=== PATIENT | male | born 1970 | race Hispanic/Latino ===

== ENCOUNTER 2016-05-21 22:17 | Inpatient (IN) | payer OTHER, MEDICARE ==
[2016-05-21 22:25] VITALS: BMI 37.5
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
[2016-05-21 23:03] LABS: URINE BILIRUBIN NEGATIVE (NEGATIVE); URINE BLOOD NEGATIVE (NEGATIVE); URINE GLUCOSE (UA) NEGATIVE (NEGATIVE); URINE KETONE NEGATIVE (NEGATIVE); URINE LEUKOCYTE ESTERASE NEGATIVE Leu/uL (NEGATIVE); URINE PROTEIN NEGATIVE mg/dL (<30 mg/dL); URINE UROBILINOGEN 0.2 E.U./dL (<1 E.U./dL)
[2016-05-21 23:04] LABS: URINE APPEARANCE CLEAR (CLEAR); URINE COLOR YELLOW (YELLOW)
[2016-05-22 00:45] LABS: GFR AFRICAN-AMERICAN > 60
[2016-05-22 00:52] LABS: ADD MANUAL DIFF? NO
[2016-05-22 00:54] LABS: BASO # 0.04 K/mm3 (0.0-2.0); BASO % 0.4 % (0.0-3.0); EOS # 0.2 (0.0-0.7); EOS % 1.8 % (1.5-5.0); GRAN # 6.67 (1.4-6.5); GRAN % 61.2 % (50.0-68.0); HEMATOCRIT 37.9 % (42.0-52.0); LYMPH # 3.2 (1.2-3.4); LYMPH % 29.8 % (22.0-35.0); MEAN CELL VOLUME 89.2 fL (80.0-105.0); MEAN CORPUSCULAR HEMOGLOBIN 30.1 pg (25.0-35.0); MEAN CORPUSCULAR HGB CONC 33.8 g/dl (31.0-37.0); MEAN PLATELET VOLUME 9.2 fl (7.0-11.0); MONO # 0.7 (0.1-0.6); MONO % 6.8 % (1.0-6.0); PLATELET COUNT 298 10^3/uL (120.0-450.0); RED CELL DISTRIBUTION WIDTH 14.7 % (11.5-14.5); WHITE BLOOD COUNT 10.9 10^3/ul (4.5-11.0)
[2016-05-22 01:05] LABS: ALB/GLOB RATIO 1.1 (1.1-1.8); ALKALINE PHOSPHATASE 82 U/L (38-133); ALT/SGPT 56 U/L (7-56); AST/SGOT 58 U/L (15-59); BILIRUBIN,TOTAL 0.5 mg/dL (0.2-1.3); BLOOD UREA NITROGEN 18 mg/dL (7-21); CALCIUM 9.1 mg/dL (8.4-10.5); CARBON DIOXIDE 32 mmol/L (21-33); CHLORIDE 97 mmol/L (95-110); POTASSIUM 4.6 mmol/L (3.6-5.0); SODIUM 137 mmol/L (132-148); TOTAL PROTEIN 7.8 g/dL (5.8-8.3)
[2016-05-22 01:12] LABS: GLUCOSE,RANDOM 140 mg/dL (70-110)
[2016-05-22 06:22] VITALS: O2SAT 98
[2016-05-22] MEDS ORDERED: buPROPion 300 mg/24 Hours XL Tab PO SCH (08:00)
--- NOTE | 2016-05-22 08:31 | RAD ---
HISTORY: medical clearance COMPARISON: 04/29/2012 FINDINGS: LUNGS: No active pulmonary disease. PLEURA: No significant pleural effusion identified, no pneumothorax apparent. CARDIOVASCULAR: Normal. OSSEOUS STRUCTURES: No significant abnormalities. VISUALIZED UPPER ABDOMEN: Normal. OTHER FINDINGS: None. IMPRESSION: No active disease.
[2016-05-22] MEDS: Alum-Mag Hydrox-Simethicone Susp (30 mL) PO PRN (08:38)
[2016-05-22 09:02] LABS: CHOLESTEROL 179 mg/dL (130-200)
--- NOTE | 2016-05-22 13:51 | CARD ---
APPROVED REPORT EKG Measurement Heart [id number] <Conclusion> Sinusl rhythm normal ECG
[2016-05-22] MEDS: Levothyroxine 50 MCG TAB PO SCH (15:13)
--- NOTE | 2016-05-22 16:11 | PCM.PSYCH ---
Initial Psychiatric Evaluation - Initial Psychiatric Evaluation Type of Admission: Voluntary Legal Status: Capacity (patient has capacity to sign consent for treatment) Chief Complaint (in patient's own words): "I had that bloody image, I got scared, I knew I needed to come for help" Patient's Reaction to Hospitalization: patient was admitted to psychiatric inpatient unit for evaluation of worsening psychotic symptoms, paranoid ideations, visual hallucinations, aggressive feelings of hurting his coworkers, but no intent or plan, pt came voluntarily to ED looking for admission. History of Present Illness and Precipitating Events: Shortly, patient is 45 year old male, history of bipolar disorder, denied previous psychiatric admissions, patient came to the emergency room looking for admission for worsening of psychotic symptoms, visual hallucinations , voices, patient's medications were changed recently, patient needs further evaluation and stabilization, medication initiation and titration, and close observation. patient was seen at the treatment team meeting, presented to have fair personal hygiene, good ADLs. Patient reported that he was stable on Risperdal 2013 which was increased to 4mg daily over the years, pt said that "it stopped working" and his outpatient psychiatrist switched it to to Invega 3mg am and 6gm pm. For the past 2 weeks patient was feeling worse, worsening of psychotic symptoms, patient is hearing voices, feeling not safe, yesterday patient had panic attack which led him to have visual hallucinations he had aggressive feelings to hurt his coworkers, patient didn't have any intent or plan to hurt other people or hurt himself, patient brought himself to the hospital looking for admission. Pt was not able to work for the past three weeks because of feeling being monitored by his coworkers. Pt reported to hear female voice telling him to kill himself, at times voice is waking him up at times pt has difficulties to fall asleep because of it. Pt said he was feeling that his coworkers are criticizing him and feeling that "If I would lose a job, that is all, I will end it all", pt said that he was not told that he is losing his job but he was feeling "stressed out", pt said he had thoughts of killing himself for about three days last week, with the idea to overdose on pills, pt said that he did not plan it but it was "popping in my head", pt also had thoughts of jumping in front of the train, last time was three weeks ago "when I was going to work", pt said he does not have any intent and he thinks about his kids and pt contracted for safety. pt reported to feel worrying about his job, kids, relationships and it is affecting his life. Pt also reported to have panic attacks. Pt also reported to feel depressed, irritable, and angry, pt said his mind was racing. Pt said that last week he was feeling very depressed for three days, has feeling of worthlessness and hopelessness, had SI OD on pills or jump in front of the train, denied intent "it was just a thought". Pt denied using drugs, denied smoking, denied alcohol use. Past psych h/o: denied admissions, h/o being under treatment with , currently under care of . Pt was dx with bipolar disorder in 2012, was on risperdal and Wellbutrin and Effexor, denied h/o suicidal attempts, h/o irritability, no aggression, worst pt have done in the past broke his laptop, it was "months ago". Family h/o: aunt is schizophrenic, no h/o suicidal attempts. Medical h/o: pt denied any medical h/o, pt seems to be obese. does not have PMD. 05/22/16 00:30 05/22/16 00:30 Lab Results 05/22/16 01:50: Urine Opiates Screen Negative, Urine Methadone Screen Negative, Ur Barbiturates Screen Negative, Ur Phencyclidine Scrn Negative, Ur Amphetamines Screen Negative, U Benzodiazepines Scrn Negative, U Oth Cocaine Metabols Negative, U Cannabinoids Screen Negative 05/22/16 00:30: WBC 10.9, RBC 4.25, Hgb 12.8 L, Hct 37.9 L, MCV 89.2, MCH 30.1, MCHC 33.8, RDW 14.7 H, Plt Count 298, MPV 9.2, Gran % 61.2, Lymph % (Auto) 29.8 , [place] % (Auto) 6.8 H, Eos % (Auto) 1.8, Baso % (Auto) 0.4, Gran # 6.67 H, Lymph # 3.2, [place] # 0.7 H, Eos # 0.2, Baso # 0.04, Sodium 137, Potassium 4.6, Chloride 97, Carbon Dioxide 32, Anion Gap 13, BUN 18, Creatinine 1.0, Est GFR ( Amer) > 60, Est GFR (Non-Af Amer) > 60, Random Glucose 140 H, Hemoglobin A1c 6.2, Calcium 9.1, Total Bilirubin 0.5, AST 58, ALT 56, Alkaline Phosphatase 82, Total Protein 7.8, Albumin 4.0, Globulin 3.8, Albumin/Globulin Ratio 1.1, Triglycerides 618 H, Cholesterol 179, LDL Cholesterol Direct 33, HDL Cholesterol 23 L, TSH 3rd Generation 4.76 H, Alcohol, Quantitative < 10 05/21/16 22:50: Urine Color Yellow, Urine Appearance Clear, Urine pH 6.0, Ur Specific [place] >= 1.030, Urine Protein Negative, Urine Glucose (UA) Negative, Urine Ketones Negative, Urine Blood Negative, Urine Nitrate Negative, Urine Bilirubin Negative, Urine Urobilinogen 0.2, Ur Leukocyte Esterase Negative Vital Signs Temp Pulse Resp BP Pulse Ox 05/22/16 07:00 97.6 F 116 H 20 135/64 05/22/16 05:57 98.3 F 80 18 153/80 H 98 05/22/16 04:00 98.2 F 75 18 128/84 95 05/22/16 02:18 78 18 118/76 100 05/21/16 22:25 98.3 F 102 H 16 138/83 98 Current Medications: Active Medications Generic Name Dose Route Start Last Admin Trade Name Freq PRN Reason Stop Dose Admin Acetaminophen 650 mg 05/22/16 05:40 Tylenol 325mg Tab PO Q6H PRN Fever >100.4 F Al Hydrox/Mg Hydrox/Simethicone 30 ml 05/22/16 05:40 05/22/16 08:38 Maalox Plus 30 Ml PO 30 ml DAILY PRN Administration Indigestion / Heartburn Benztropine Mesylate 1 mg 05/22/16 22:00 Cogentin PO HS PAULA Bupropion HCl 300 mg 05/22/16 08:00 05/22/16 08:30 Wellbutrin Xl PO 300 mg DAILY PAULA Administration Clonazepam 0.5 mg 05/23/16 08:00 Klonopin PO DAILY PAULA Protocol Risperidone 2 mg 05/22/16 22:00 Risperdal Tab PO HS PAULA Protocol Zaleplon 5 mg 05/22/16 05:12 05/22/16 05:21 Sonata PO 5 mg HS PRN Administration Insomnia Past Psychiatric History - Past Psychiatric History Previous Treatment History: None Prior Professional Help: Outpatient treatment, see HPI Prior Psychiatric Treatment: see HPI At what hospital: see HPI Duration: see HPI Nature of Treatment: med management Explanation of prior treatment: see HPI History of Abuse: denied History of ETOH/Drug Use: see HPI, denied History of Family Illness: history of schizophrenia and see HPI Pertinent Medical Hx (Current Medical&Sleep Prob, Allergies): Allergies Allergy/AdvReac Type Severity Reaction Status Date / Time nitroglycerin Allergy NAUSEA Verified 05/22/16 06:23 Amylase/Lipase/Protease [Zenpep [id number] [id number] [id number] U] 1 ecc PO PRN PRN Bupropion Hydrochloride [Wellbutrin] 300 mg PO DAILY 04/29/12 Clonazepam [Klonopin] 0.5 mg PO PRN PRN 04/29/12 Dexlansoprazole [Dexilant] 60 mg PO DAILY 04/29/12 Risperidone [Risperidone Odt] 0.5 mg PO QID 04/29/12 Mental Status Examination - Personal Presentation Personal Presentation: Looks stated age - Affect Affect: Constricted, Flat - Motor Activity Motor Activity: Psychomotor Retardation - Reliability in Providing Information Reliability in Providing Information: Fair - Speech Speech: Organized, Relevant - Mood Mood: Depressed - Formal Thought Process Formal Thought Process: Hallucinations, Delusions, Paranoia, Loosening of associations - Hallucinations/Delusions Delusions: Persecution - Obsessions/Compulsions Obsessions: None Compulsions: None - Cognitive Functions Orientation: Person, Place, Situation Sensorium: Alert Attention/Concentration: Easily distracted Abstract Thinking: Stephens Estimate of Intelligence: Average Judgement: Intact, as evidence by: Insight regarding need for hospitalization - Risk Risk: Suicidal, Homicidal, Self-mutilation, Diminished functioning - Strength & Assets Inventory Strength & Assets Inventory: Intelligence, Family support, Education, Employment status, Employment history, Skills, Life experience, Cooperative - Limitations Limitations: Other (psychotic symptoms) DSM 5 DX - DSM 5 DSM 5 Diagnosis: rule out bipolar disorder most recent episode mixed with psychosis rule out schizoaffective disorder, bipolar type Rule out schizophrenia, late onset - Recommended/Plan of Treatment Treatment Recommendations and Plan of Treatment: milieu, structure, supportive therapy we'll start taper down the Wellbutrin because risk of psychotic symptomscurrently patient will be on extended release 150 mg, with regular release 75 mg ( patient was on extended release 300 mg daily) Amylase/Lipase/Protease [Zenpep [id number] U] 1 ecc PO PRN PRN Ur medical team Clonazepam [Klonopin] 0.5 mg PO twice a day for anxiety Dexlansoprazole [Dexilant] 60 mg PO DAILY as per medical team Risperidone 2 mg a.m. and at bedtime for psychosis and mood stabilization cogentin 0.5 mg twice a day at the morning time at the nighttime for possible EPS symptoms Effexor 1150 mg daily for depression and anxiety Folic acid will be resumed Invega will be discontinued as per patient request because there is no effect on that medication collaterals from family Projected ELOS: 7 days Prognosis: fair Discharge Plan and Discharge Criteria: Pt will be not depressed or manic, will be more hopeful, will be not psychotic or anxious, will be tolerating medications well, will not have major side effects, will be able to function, will not pose threat to self or others. - Smoking Cessation Smoking Cessation Initiated: No Reason for not providing: pt denied smoking
--- NOTE | 2016-05-22 23:08 | CON ---
DATE: 05/22/2016 HISTORY OF PRESENT ILLNESS: The patient is a 45-year-old male, who was brought to Emergency Room, ac companied by his , after he was having some visually noted hallucinations. He felt as if he was shooting people at work. He got very upset, nervous, and had a panic attack. The patient is under t he care of a psychiatrist and neurologist at an outside facility. PAST MEDICAL HISTORY: Significant for gastroparesis reflux disease, irritable bowel syndrome, and hy perlipidemia. ALLERGIES: HE IS ALLERGIC TO NITROGLYCERIN. MEDICATIONS AT HOME: He is on Risperdal 0.5 four times a day, Dexilant 60 mg daily, Klonopin 0.5 thr ee times a day p.r.n., bupropion 300 mg daily, and pancreatic enzymes. SOCIAL HISTORY: He is , lives with his . Denies smoking, drinking, or alcohol use. REVIEW OF SYSTEMS: Significant for feeling anxious and agitated at times. PHYSICAL EXAMINATION: GENERAL: He is awake and alert, communicative. VITAL SIGNS: He is afebrile, pulse 60, respirations 20, blood pressure 135/64. LUNGS: Bilateral fair airflow, no rhonchi or crackle. HEART: S1, S2 audible. No murmur. ABDOMEN: Soft, obese, nontender, no rebound, no guarding. NEUROLOGIC: He is awake and alert, communicative. Moves all extremities. Ambulatory. LABORATORY DATA: Sodium 137, potassium 4.6, chloride 97, CO2 32, BUN 18, creatinine 1.0, blood sugar 140. Hemoglobin A1c is 6.3, triglycerides 618, total cholesterol of 78 and TSH is 4.76. Urinalysis is negative. Urine tox is negative. X-ray chest is negative. ASSESSMENT: 1. History of schizophrenia with paranoid schizophrenia and hallucinations. 2. Gastroesophageal reflux disease. 3. Inflammatory bowel syndrome. PLAN: The patient will be started on 50 mcg of Synthroid. I will start him on Protonix. I will als o start him on Tricor and Psych medication will be adjusted by the psychiatrist. Mykel Cheng MD cc: [phone] TT: 05/22/2016 23:07:29 Confirmation # [id number] Dictation # [id number]
[2016-05-23] MEDS: Levothyroxine 50 MCG TAB PO SCH (08:13)
[2016-05-23] MEDS: Venlafaxine 75 mg ER Cap PO SCH (08:44)
[2016-05-23] MEDS: Alum-Mag Hydrox-Simethicone Susp (30 mL) PO PRN (08:46)
[2016-05-23] MEDS: buPROPion 150 mg/24 Hours XL Tab PO SCH (08:46)
--- NOTE | 2016-05-23 12:46 | PCM.PYCHPN ---
Psychiatric Progress Note - Psychiatric Progress Note Patient seen today, length of contact: 30min Patient Chief Complaint: "I feel little better, but I have restlessness..." Problems Identified/Issues Discussed: Suicide/ homicide prevention, past psychiatric h/o, current psychiatric symptoms , medical problems, risk/benefits and alternatives of medications, medications compliance, coping strategies, substance abuse h/o, relapse prevention, importance of follow up with psychiatrist and therapist, discharge plan. Medical Problems: dyslipidemia hypothyroidism obesity Diagnostic Results: 05/22/16 00:30 05/22/16 00:30 Lab Results 05/22/16 01:50: Urine Opiates Screen Negative, Urine Methadone Screen Negative, Ur Barbiturates Screen Negative, Ur Phencyclidine Scrn Negative, Ur Amphetamines Screen Negative, U Benzodiazepines Scrn Negative, U Oth Cocaine Metabols Negative, U Cannabinoids Screen Negative 05/22/16 00:30: WBC 10.9, RBC 4.25, Hgb 12.8 L, Hct 37.9 L, MCV 89.2, MCH 30.1, MCHC 33.8, RDW 14.7 H, Plt Count 298, MPV 9.2, Gran % 61.2, Lymph % (Auto) 29.8 , [place] % (Auto) 6.8 H, Eos % (Auto) 1.8, Baso % (Auto) 0.4, Gran # 6.67 H, Lymph # 3.2, [place] # 0.7 H, Eos # 0.2, Baso # 0.04, Sodium 137, Potassium 4.6, Chloride 97, Carbon Dioxide 32, Anion Gap 13, BUN 18, Creatinine 1.0, Est GFR ( Amer) > 60, Est GFR (Non-Af Amer) > 60, Random Glucose 140 H, Hemoglobin A1c 6.2, Calcium 9.1, Total Bilirubin 0.5, AST 58, ALT 56, Alkaline Phosphatase 82, Total Protein 7.8, Albumin 4.0, Globulin 3.8, Albumin/Globulin Ratio 1.1, Triglycerides 618 H, Cholesterol 179, LDL Cholesterol Direct 33, HDL Cholesterol 23 L, TSH 3rd Generation 4.76 H, Alcohol, Quantitative < 10 05/21/16 22:50: Urine Color Yellow, Urine Appearance Clear, Urine pH 6.0, Ur Specific [place] >= 1.030, Urine Protein Negative, Urine Glucose (UA) Negative, Urine Ketones Negative, Urine Blood Negative, Urine Nitrate Negative, Urine Bilirubin Negative, Urine Urobilinogen 0.2, Ur Leukocyte Esterase Negative Vital Signs Temp Pulse Resp BP Pulse Ox 05/23/16 09:57 98.3 F 86 20 133/89 05/22/16 15:48 93 H 166/99 H 05/22/16 07:00 97.6 F 116 H 20 135/64 05/22/16 05:57 98.3 F 80 18 153/80 H 98 05/22/16 04:00 98.2 F 75 18 128/84 95 05/22/16 02:18 78 18 118/76 100 05/21/16 22:25 98.3 F 102 H 16 138/83 98 DSM 5 Symptoms Update: Shortly, patient is 45 year old male, history of bipolar disorder, denied previous psychiatric admissions, patient came to the emergency room looking for admission for worsening of psychotic symptoms, visual hallucinations , voices, patient's medications were changed recently, patient needs further evaluation and stabilization, medication initiation and titration, and close observation. patient was seen at the treatment team room, presented to have fair personal hygiene, good ADLs. Patient reported he feels "little better, I slept well", pt said that he still hears some voices, and at times he had feelings that people are talking about him. pt said he feels very restless, was observed that he is constantly moving his LE, will give Klonopin for akathesia. Pt said that he still feels depressed, but more hopeful for the future. Pt still feels anxious about his family, especially in this storm weather. As per staff pt started to go to groups, pt is visible in the unit, but at the same time like observer only, is not socializing with others. Pt was seen by medical team, pt was educated about his labs and tx plan. Pt tolerates meds well, no side effects observed or reported, but akathesia on risperdal and invega. Impression: DSM 5 Diagnosis: rule out bipolar disorder most recent episode mixed with psychosis rule out schizoaffective disorder, bipolar type Rule out schizophrenia, late onset Medication Change: Yes (klonopin increased, wellbutrin decreased) Medical Record Reviewed: Yes Consults ordered or reviewed: medical consult appreciated see notes for more detailed information Mental Status Examination - Cognitive Function Orientation: Person, Place, Situation Memory: Intact Attention: Poor Concentration: Poor Association: Loose Fund of Knowledge: WNL - Mood Mood: Depressed, Anxious - Affect Affect: Constricted, Flat - Speech Speech: Appropriate (but underproductive) - Formal Thought Process Formal Thought Process: Hallucinations (somewhat better), Delusions (some improvement), Paranoia, Loosening of associations - Suicidal Ideation Suicidal Ideation: No - Homicidal Ideation Homicidal Ideation: No Goal/Treatment Plan - Goal/Treatment Plan Need for Continued Stay: Remain at risks for inpatient hospitalization, Severe depression anxiety, Discharge may exacerbated symptoms, Severe functional impairment Progress Toward Problem(s) and Goals/Treatment Plan: milieu, structure, supportive therapy will decrease Wellbutrin ER 150 mg, with plan to taper it down because it could cause psychosis Clonazepam 1mg po twice a day for akathesia and anxiety Dexlansoprazole [Dexilant] 60 mg PO DAILY as per medical team Risperidone 2 mg a.m. and at bedtime for psychosis and mood stabilization cogentin 0.5 mg twice a day at the morning time at the nighttime for possible EPS symptoms Effexor 150 mg daily for depression and anxiety with the plan to increase it further if need to Folic acid will be resumed medical consult appreciated SW evaluation will monitor closely Estimated Date of D/C: 05/29/16 (will monoitor closely)
[2016-05-24] MEDS: Levothyroxine 50 MCG TAB PO SCH (08:48)
[2016-05-24] MEDS: buPROPion 150 mg/24 Hours XL Tab PO SCH (08:48)
[2016-05-24] MEDS: Venlafaxine 75 mg ER Cap PO SCH (08:48)
--- NOTE | 2016-05-24 13:40 | PCM.PYCHPN ---
Psychiatric Progress Note - Psychiatric Progress Note Patient seen today, length of contact: 30min Patient Chief Complaint: "I feel little better" Problems Identified/Issues Discussed: Suicide/ homicide prevention, past psychiatric h/o, current psychiatric symptoms , medical problems, risk/benefits and alternatives of medications, medications compliance, coping strategies, substance abuse h/o, relapse prevention, importance of follow up with psychiatrist and therapist, discharge plan. Medical Problems: dyslipidemia hypothyroidism obesity Diagnostic Results: 05/22/16 00:30 05/22/16 00:30 Lab Results 05/22/16 01:50: Urine Opiates Screen Negative, Urine Methadone Screen Negative, Ur Barbiturates Screen Negative, Ur Phencyclidine Scrn Negative, Ur Amphetamines Screen Negative, U Benzodiazepines Scrn Negative, U Oth Cocaine Metabols Negative, U Cannabinoids Screen Negative 05/22/16 00:30: WBC 10.9, RBC 4.25, Hgb 12.8 L, Hct 37.9 L, MCV 89.2, MCH 30.1, MCHC 33.8, RDW 14.7 H, Plt Count 298, MPV 9.2, Gran % 61.2, Lymph % (Auto) 29.8 , [place] % (Auto) 6.8 H, Eos % (Auto) 1.8, Baso % (Auto) 0.4, Gran # 6.67 H, Lymph # 3.2, [place] # 0.7 H, Eos # 0.2, Baso # 0.04, Sodium 137, Potassium 4.6, Chloride 97, Carbon Dioxide 32, Anion Gap 13, BUN 18, Creatinine 1.0, Est GFR ( Amer) > 60, Est GFR (Non-Af Amer) > 60, Random Glucose 140 H, Hemoglobin A1c 6.2, Calcium 9.1, Total Bilirubin 0.5, AST 58, ALT 56, Alkaline Phosphatase 82, Total Protein 7.8, Albumin 4.0, Globulin 3.8, Albumin/Globulin Ratio 1.1, Triglycerides 618 H, Cholesterol 179, LDL Cholesterol Direct 33, HDL Cholesterol 23 L, TSH 3rd Generation 4.76 H, Alcohol, Quantitative < 10 05/21/16 22:50: Urine Color Yellow, Urine Appearance Clear, Urine pH 6.0, Ur Specific [place] >= 1.030, Urine Protein Negative, Urine Glucose (UA) Negative, Urine Ketones Negative, Urine Blood Negative, Urine Nitrate Negative, Urine Bilirubin Negative, Urine Urobilinogen 0.2, Ur Leukocyte Esterase Negative Vital Signs Temp Pulse Resp BP Pulse Ox 05/23/16 09:57 98.3 F 86 20 133/89 05/22/16 15:48 93 H 166/99 H 05/22/16 07:00 97.6 F 116 H 20 135/64 05/22/16 05:57 98.3 F 80 18 153/80 H 98 05/22/16 04:00 98.2 F 75 18 128/84 95 05/22/16 02:18 78 18 118/76 100 05/21/16 22:25 98.3 F 102 H 16 138/83 98 Temp Pulse Resp BP Pulse Ox 98.3 F 81 20 105/62 98 05/24/16 07:00 05/24/16 07:00 05/24/16 07:00 05/24/16 07:00 05/22/16 05:57 DSM 5 Symptoms Update: Shortly, patient is 45 year old male, history of bipolar disorder, denied previous psychiatric admissions, patient came to the emergency room looking for admission for worsening of psychotic symptoms, visual hallucinations , voices, patient's medications were changed recently, patient needs further evaluation and stabilization, medication initiation and titration, and close observation. patient was seen at the treatment team room, presented to have fair personal hygiene, good ADLs. Patient reported he feels "little better, I slept well", pt said that he still hears some voices, and at times he had feelings that people are talking about him. ut with some improvement, akathisia is much better, patient was able to sit still there is no movements. Pt said that he still feels depressed, but more hopeful for the future. patient doesn't feel that he can go back to work. At present moment patient is on short- term disability. Pt still feels anxious about his family, especially in this storm weather. As per staff pt started to go to groups, pt is visible in the unit, but at the same time like observer only, is not socializing with others. Pt was seen by medical team, pt was educated about his labs and tx plan. Pt tolerates meds well, no side effects observed or reported, but akathesia on risperdal and invega. Impression: DSM 5 Diagnosis: rule out bipolar disorder most recent episode mixed with psychosis rule out schizoaffective disorder, bipolar type Rule out schizophrenia, late onset Medication Change: Yes (wellbutrin will be discontinued today) Medical Record Reviewed: Yes Consults ordered or reviewed: medical consult appreciated see notes for more detailed information Mental Status Examination - Cognitive Function Orientation: Person, Place, Situation Memory: Intact Attention: Poor (omewhat better) Concentration: Poor (somewhat better) Association: WNL Fund of Knowledge: WNL - Mood Mood: Depressed (I feel better) - Affect Affect: Constricted (but reactive mood congruent) - Speech Speech: Appropriate (but underproductive) - Formal Thought Process Formal Thought Process: Hallucinations (denied today), Delusions (some improvement), Paranoia, Loosening of associations - Suicidal Ideation Suicidal Ideation: No - Homicidal Ideation Homicidal Ideation: No Goal/Treatment Plan - Goal/Treatment Plan Need for Continued Stay: Remain at risks for inpatient hospitalization, Severe depression anxiety, Discharge may exacerbated symptoms, Severe functional impairment Progress Toward Problem(s) and Goals/Treatment Plan: milieu, structure, supportive therapy continue Wellbutrin Clonazepam 1mg po twice a day for akathesia and anxiety Dexlansoprazole [Dexilant] 60 mg PO DAILY as per medical team Risperidone 2 mg a.m. and at bedtime for psychosis and mood stabilization cogentin 0.5 mg twice a day at the morning time at the nighttime for possible EPS symptoms Effexor 150 mg daily for depression and anxiety with the plan to increase it further if need to Folic acid will be resumed medical consult appreciated SW evaluation will monitor closely Estimated Date of D/C: 05/29/16 (will monoitor closely)
--- NOTE | 2016-05-24 19:58 | PN ---
DATE: 05/24/2016 SUBJECTIVE: The patient is a 45-year-old, seen and examined sitting in chair. Complained of some he artburn. The patient states he has a history of bipolar disorder and currently has been in manic pha se, has been hallucinating. He took his usual medications. He used to take Risperdal, but he went t o psychiatrist who change his medication which was not working, so he came to Emergency Room for eval uation. Today he complained of some epigastric discomfort and dyspepsia. No history of nausea or vomiting. OBJECTIVE: VITAL SIGNS: He is afebrile, pulse 81, respirations 20, blood pressure 133/84. LUNGS: Bilateral good airflow, no rhonchi or crackle. HEART: S1, S2 audible. No murmur. ABDOMEN: Soft, nontender, obese. No hepatosplenomegaly. NEUROLOGIC: The patient is awake and alert, communicative. ASSESSMENT AND PLAN: 1. Bipolar disorder. 2. Hypothyroidism. 3. Hyperlipidemia. 4. Gastritis. PLAN: The patient has been started on Tricor; will continue that. He has been started on levothyrox ine. I will also start him on Protonix. Will reevaluate the patient in the a.m. Mykel Cheng MD cc: [phone] TT: 05/24/2016 19:58:03 Confirmation # [id number] Dictation # [id number] sergo
[2016-05-25] MEDS: Levothyroxine 50 MCG TAB PO SCH (08:11)
[2016-05-25] MEDS: Venlafaxine 75 mg ER Cap PO SCH (08:12)
[2016-05-25] MEDS: Pantoprazole 40 mg EC Tab PO SCH (08:13)
--- NOTE | 2016-05-25 18:30 | PCM.PYCHPN ---
Psychiatric Progress Note - Psychiatric Progress Note Patient seen today, length of contact: 30min Patient Chief Complaint: "I feel little better" Problems Identified/Issues Discussed: Suicide/ homicide prevention, past psychiatric h/o, current psychiatric symptoms , medical problems, risk/benefits and alternatives of medications, medications compliance, coping strategies, substance abuse h/o, relapse prevention, importance of follow up with psychiatrist and therapist, discharge plan. Medical Problems: dyslipidemia hypothyroidism obesity Diagnostic Results: 05/22/16 00:30 05/22/16 00:30 Lab Results 05/22/16 01:50: Urine Opiates Screen Negative, Urine Methadone Screen Negative, Ur Barbiturates Screen Negative, Ur Phencyclidine Scrn Negative, Ur Amphetamines Screen Negative, U Benzodiazepines Scrn Negative, U Oth Cocaine Metabols Negative, U Cannabinoids Screen Negative 05/22/16 00:30: WBC 10.9, RBC 4.25, Hgb 12.8 L, Hct 37.9 L, MCV 89.2, MCH 30.1, MCHC 33.8, RDW 14.7 H, Plt Count 298, MPV 9.2, Gran % 61.2, Lymph % (Auto) 29.8 , [place] % (Auto) 6.8 H, Eos % (Auto) 1.8, Baso % (Auto) 0.4, Gran # 6.67 H, Lymph # 3.2, [place] # 0.7 H, Eos # 0.2, Baso # 0.04, Sodium 137, Potassium 4.6, Chloride 97, Carbon Dioxide 32, Anion Gap 13, BUN 18, Creatinine 1.0, Est GFR ( Amer) > 60, Est GFR (Non-Af Amer) > 60, Random Glucose 140 H, Hemoglobin A1c 6.2, Calcium 9.1, Total Bilirubin 0.5, AST 58, ALT 56, Alkaline Phosphatase 82, Total Protein 7.8, Albumin 4.0, Globulin 3.8, Albumin/Globulin Ratio 1.1, Triglycerides 618 H, Cholesterol 179, LDL Cholesterol Direct 33, HDL Cholesterol 23 L, TSH 3rd Generation 4.76 H, Alcohol, Quantitative < 10 05/21/16 22:50: Urine Color Yellow, Urine Appearance Clear, Urine pH 6.0, Ur Specific [place] >= 1.030, Urine Protein Negative, Urine Glucose (UA) Negative, Urine Ketones Negative, Urine Blood Negative, Urine Nitrate Negative, Urine Bilirubin Negative, Urine Urobilinogen 0.2, Ur Leukocyte Esterase Negative Vital Signs Temp Pulse Resp BP Pulse Ox 05/23/16 09:57 98.3 F 86 20 133/89 05/22/16 15:48 93 H 166/99 H 05/22/16 07:00 97.6 F 116 H 20 135/64 05/22/16 05:57 98.3 F 80 18 153/80 H 98 05/22/16 04:00 98.2 F 75 18 128/84 95 05/22/16 02:18 78 18 118/76 100 05/21/16 22:25 98.3 F 102 H 16 138/83 98 Temp Pulse Resp BP Pulse Ox 98.3 F 81 20 105/62 98 05/24/16 07:00 05/24/16 07:00 05/24/16 07:00 05/24/16 07:00 05/22/16 05:57 Temp Pulse Resp BP Pulse Ox 98.3 F 86 20 133/94 H 98 05/24/16 07:00 05/25/16 16:00 05/24/16 07:00 05/25/16 16:00 05/22/16 05:57 DSM 5 Symptoms Update: Shortly, patient is 45 year old male, history of bipolar disorder, denied previous psychiatric admissions, patient came to the emergency room looking for admission for worsening of psychotic symptoms, visual hallucinations , voices, patient's medications were changed recently, patient needs further evaluation and stabilization, medication initiation and titration, and close observation. patient was seen at the treatment team room, presented to have fair personal hygiene, good ADLs. Patient reported he feels "little better, I slept well", pt said that he is feeling that people at work still talking badly about him, pt does not feel comfortable to go back to work "I am planning to take some time off", akathisia is much better, pt still c/o feeling of restlessness, but refused klonopin to be increased. Pt said that he still feels depressed, but more hopeful for the future. Pt still feels anxious about his family, especially in this storm weather. As per staff pt started to go to groups, pt is visible in the unit, but at the same time like observer only, is not socializing with others. Pt was seen by medical team, pt was educated about his labs and tx plan. Pt tolerates meds well, no side effects observed or reported, akathesia is better. Impression: DSM 5 Diagnosis: rule out bipolar disorder most recent episode mixed with psychosis rule out schizoaffective disorder, bipolar type Rule out schizophrenia, late onset Medication Change: Yes Medical Record Reviewed: Yes Consults ordered or reviewed: medical consult appreciated see notes for more detailed information Mental Status Examination - Cognitive Function Orientation: Person, Place, Situation Memory: Intact Attention: Poor (omewhat better) Concentration: Poor (somewhat better) Association: WNL Fund of Knowledge: WNL - Mood Mood: Depressed (I feel better) - Affect Affect: Constricted (but reactive mood congruent) - Speech Speech: Appropriate (but underproductive) - Formal Thought Process Formal Thought Process: Hallucinations (denied today), Delusions (some improvement), Paranoia - Suicidal Ideation Suicidal Ideation: No - Homicidal Ideation Homicidal Ideation: No Goal/Treatment Plan - Goal/Treatment Plan Need for Continued Stay: Remain at risks for inpatient hospitalization, Severe depression anxiety, Discharge may exacerbated symptoms, Severe functional impairment Progress Toward Problem(s) and Goals/Treatment Plan: milieu, structure, supportive therapy d/c Wellbutrin Clonazepam 1mg po twice a day for akathesia and anxiety Dexlansoprazole [Dexilant] 60 mg PO DAILY as per medical team Risperidone 2 mg a.m. and at bedtime for psychosis and mood stabilization cogentin 0.5 mg twice a day at the morning time at the nighttime for possible EPS symptoms Effexor 150 mg daily for depression and anxiety with the plan to increase it further if need to Folic acid will be resumed medical consult appreciated SW evaluation will monitor closely Estimated Date of D/C: 05/29/16 (will monoitor closely)
--- NOTE | 2016-05-25 19:08 | PN ---
DATE: 05/25/2016 The patient is a 45-year-old, seen and examined, sitting in chair, comfortable. He states he feels m uch better. No more hallucinations. No nausea, vomiting, no diarrhea. PHYSICAL EXAMINATION: VITAL SIGNS: He is afebrile, pulse 81, respirations 20, blood pressure 133/84. LUNGS: Bilateral good airflow, no rhonchi or crackle. HEART: S1, S2 audible, no murmur. ABDOMEN: Soft, obese, nontender, no rebound, no guarding. NEUROLOGIC: He is awake and alert, communicative, ambulatory. ASSESSMENT: 1. Bipolar disorder, was in manic stage, doing well. 2. Paranoid schizophrenia. 3. Hypothyroidism. 4. Hyperlipidemia. 5. Peptic ulcer disease. 6. Status post visual hallucinations. PLAN: Currently, patient is on Tricor. He is getting Synthroid because of his hypothyroidism and he has been started on Protonix with good result. I will sign off and see patient as needed and if he wishes to follow with me as outpatient for primary care physician, he should be followed as outpatien t. Mykel Cheng MD cc: [phone] TT: 05/25/2016 19:07:46 Confirmation # [id number] Dictation # [id number] adrian
[2016-05-26 07:30] VITALS: BP 139/90; PULSE 73
[2016-05-26] MEDS: Venlafaxine 75 mg ER Cap PO SCH (09:06)
[2016-05-26] MEDS: Pantoprazole 40 mg EC Tab PO SCH (09:07)
[2016-05-26] MEDS: Levothyroxine 50 MCG TAB PO SCH (09:08)
[2016-05-26 11:30] VITALS: RESP 17; TEMP 97.5
--- NOTE | 2016-05-26 17:43 | PCM.PYCHDC ---
Mental Status Examination - Mental Status Examination Orientation: Person, Place, Situation, Time Memory: Intact Mood: Neutral Affect: Constricted (but reactive and mood congruent) Speech: Appropriate Attention: WNL Concentration: WNL Association: WNL Fund of Knowledge: WNL Formal Thought Process: Delusions (much better), Paranoia (uch better but patient still has paranoia that people at work are monitoring him) Description of patient's judgement and insight: Pt has improved insight into mental and medical illness, pt was compliant with medications and unit rules and regulations, pt was going to groups, was calm, cooperative, socially appropriate, no behavioral incidents, no agitation, no aggression. Psychotic Thoughts and Behaviors: Pt denied v/a/t hallucinations, denied paranoid ideations, pt does not appear to be psychotic, and thought process is goal directed. Suicidal Ideation: No Current Homicidal Ideation?: No Plan: pt adamantly denied thoughts of harming self or others denied intent or plan. Discharge Summary - Discharge Note Reason for Hospitalization: patient was admitted to psychiatric inpatient unit for evaluation of worsening psychotic symptoms, paranoid ideation, visual hallucinations, aggressive feelings of hurting his coworkers, but no intent or plan, pt came voluntarily to ED looking for admission. Psychiatric History (includes Medical, Family, Personal Hx): med management Laboratory Data: 05/22/16 00:30 05/22/16 00:30 Lab Results 05/22/16 01:50: Urine Opiates Screen Negative, Urine Methadone Screen Negative, Ur Barbiturates Screen Negative, Ur Phencyclidine Scrn Negative, Ur Amphetamines Screen Negative, U Benzodiazepines Scrn Negative, U Oth Cocaine Metabols Negative, U Cannabinoids Screen Negative 05/22/16 00:30: WBC 10.9, RBC 4.25, Hgb 12.8 L, Hct 37.9 L, MCV 89.2, MCH 30.1, MCHC 33.8, RDW 14.7 H, Plt Count 298, MPV 9.2, Gran % 61.2, Lymph % (Auto) 29.8 , Hood % (Auto) 6.8 H, Eos % (Auto) 1.8, Baso % (Auto) 0.4, Gran # 6.67 H, Lymph # 3.2, Hood # 0.7 H, Eos # 0.2, Baso # 0.04, Sodium 137, Potassium 4.6, Chloride 97, Carbon Dioxide 32, Anion Gap 13, BUN 18, Creatinine 1.0, Est GFR ( Amer) > 60, Est GFR (Non-Af Amer) > 60, Random Glucose 140 H, Hemoglobin A1c 6.2, Calcium 9.1, Total Bilirubin 0.5, AST 58, ALT 56, Alkaline Phosphatase 82, Total Protein 7.8, Albumin 4.0, Globulin 3.8, Albumin/Globulin Ratio 1.1, Triglycerides 618 H, Cholesterol 179, LDL Cholesterol Direct 33, HDL Cholesterol 23 L, TSH 3rd Generation 4.76 H, Alcohol, Quantitative < 10 05/21/16 22:50: Urine Color Yellow, Urine Appearance Clear, Urine pH 6.0, Ur Specific Hoskins >= 1.030, Urine Protein Negative, Urine Glucose (UA) Negative, Urine Ketones Negative, Urine Blood Negative, Urine Nitrate Negative, Urine Bilirubin Negative, Urine Urobilinogen 0.2, Ur Leukocyte Esterase Negative Vital Signs Temp Pulse Resp BP Pulse Ox 05/26/16 08:00 97.5 F L 73 17 139/90 05/26/16 07:29 20 F L 73 20 139/90 05/25/16 16:00 86 133/94 H 05/24/16 16:00 95 H 133/84 05/24/16 07:00 98.3 F 81 20 105/62 05/23/16 17:47 84 130/93 H 05/23/16 09:57 98.3 F 86 20 133/89 05/22/16 15:48 93 H 166/99 H 05/22/16 07:00 97.6 F 116 H 20 135/64 05/22/16 05:57 98.3 F 80 18 153/80 H 98 05/22/16 04:00 98.2 F 75 18 128/84 95 05/22/16 02:18 78 18 118/76 100 05/21/16 22:25 98.3 F 102 H 16 138/83 98 Consultations:: List each consultation separately and include: 1. Reason for request. 2. Findings. 3. Follow-up Consultations: medical consult appreciated see notes for more detailed information Summary of Hospital Course include:: 1. Description of specific treatment plan utilized for patients during their course of treatmen. 2. Summarize the time- course for resolution of acute symptoms and/or regressed behaviors. 3. Describe issues identified and worked on during hospitalization. 4. Describe medication utilized. 5. Describe medical problems identified and treated. 6. Reassessment of suicide risk Summary of Hospital Course: Shortly, patient is 45 year old male, history of bipolar disorder, denied previous psychiatric admissions, patient came to the emergency room looking for admission for worsening of psychotic symptoms, visual hallucinations , voices, patient's medications were changed recently, patient needs further evaluation and stabilization, medication initiation and titration, and close observation. initially patient was seen at the treatment team meeting, presented to have fair personal hygiene, good ADLs. Patient reported that he was stable on Risperdal 2013 which was increased to 4mg daily over the years, pt said that "it stopped working" and his outpatient psychiatrist switched it to to Invega 3mg am and 6gm pm. For the past 2 weeks patient was feeling worse, worsening of psychotic symptoms, patient is hearing voices, feeling not safe, yesterday patient had panic attack which led him to have visual hallucinations he had aggressive feelings to hurt his coworkers, patient didn't have any intent or plan to hurt other people or hurt himself, patient brought himself to the hospital looking for admission. Pt was not able to work for the past three weeks because of feeling being monitored by his coworkers. Pt reported to hear female voice telling him to kill himself, at times voice is waking him up at times pt has difficulties to fall asleep because of it. Pt said he was feeling that his coworkers are criticizing him and feeling that "If I would lose a job, that is all, I will end it all", pt said that he was not told that he is losing his job but he was feeling "stressed out", pt said he had thoughts of killing himself for about three days last week, with the idea to overdose on pills, pt said that he did not plan it but it was "popping in my head", pt also had thoughts of jumping in front of the train, last time was three weeks ago "when I was going to work", pt said he does not have any intent and he thinks about his kids and pt contracted for safety. pt reported to feel worrying about his job, kids, relationships and it is affecting his life. Pt also reported to have panic attacks. Pt also reported to feel depressed, irritable, and angry, pt said his mind was racing. Pt said that last week he was feeling very depressed for three days, has feeling of worthlessness and hopelessness, had SI OD on pills or jump in front of the train, denied intent "it was just a thought". Pt denied using drugs, denied smoking, denied alcohol use. Past psych h/o: denied admissions, h/o being under treatment with , currently under care of . Pt was dx with bipolar disorder in 2012, was on risperdal and Wellbutrin and Effexor, denied h/o suicidal attempts, h/o irritability, no aggression, worst pt have done in the past broke his laptop, it was "months ago". Family h/o: aunt is schizophrenic, no h/o suicidal attempts. Medical h/o: pt denied any medical h/o, pt seems to be obese. does not have PMD. 05/22/16 00:30 05/22/16 00:30 Lab Results 05/22/16 01:50: Urine Opiates Screen Negative, Urine Methadone Screen Negative, Ur Barbiturates Screen Negative, Ur Phencyclidine Scrn Negative, Ur Amphetamines Screen Negative, U Benzodiazepines Scrn Negative, U Oth Cocaine Metabols Negative, U Cannabinoids Screen Negative 05/22/16 00:30: WBC 10.9, RBC 4.25, Hgb 12.8 L, Hct 37.9 L, MCV 89.2, MCH 30.1, MCHC 33.8, RDW 14.7 H, Plt Count 298, MPV 9.2, Gran % 61.2, Lymph % (Auto) 29.8 , Hood % (Auto) 6.8 H, Eos % (Auto) 1.8, Baso % (Auto) 0.4, Gran # 6.67 H, Lymph # 3.2, Hood # 0.7 H, Eos # 0.2, Baso # 0.04, Sodium 137, Potassium 4.6, Chloride 97, Carbon Dioxide 32, Anion Gap 13, BUN 18, Creatinine 1.0, Est GFR ( Amer) > 60, Est GFR (Non-Af Amer) > 60, Random Glucose 140 H, Hemoglobin A1c 6.2, Calcium 9.1, Total Bilirubin 0.5, AST 58, ALT 56, Alkaline Phosphatase 82, Total Protein 7.8, Albumin 4.0, Globulin 3.8, Albumin/Globulin Ratio 1.1, Triglycerides 618 H, Cholesterol 179, LDL Cholesterol Direct 33, HDL Cholesterol 23 L, TSH 3rd Generation 4.76 H, Alcohol, Quantitative < 10 05/21/16 22:50: Urine Color Yellow, Urine Appearance Clear, Urine pH 6.0, Ur Specific Hoskins >= 1.030, Urine Protein Negative, Urine Glucose (UA) Negative, Urine Ketones Negative, Urine Blood Negative, Urine Nitrate Negative, Urine Bilirubin Negative, Urine Urobilinogen 0.2, Ur Leukocyte Esterase Negative Vital Signs Temp Pulse Resp BP Pulse Ox 05/22/16 07:00 97.6 F 116 H 20 135/64 05/22/16 05:57 98.3 F 80 18 153/80 H 98 05/22/16 04:00 98.2 F 75 18 128/84 95 05/22/16 02:18 78 18 118/76 100 05/21/16 22:25 98.3 F 102 H 16 138/83 98 patient inVega was discontinued patient was started on Risperdal which was titrated to 2 mg twice a dayfor psychotic symptoms Wellbutrin was discontinued because of potential worsening of psychosis Effexor was increased to 150 mg a day extended-release for depression and anxiety Cogentin was continued 0.5 mg twice a day for possible EPS patient had akathisia and restlessness for what Klonopin was increased to 1 mg twice a day Patient also had insomnia and Sonata was given to the patient 5 mg at the nighttime he shouldn't was seen by medical team Synthroid was started please see medical team notes for more detailed information. Patient tolerated medications well, no side effects observed or reported, aims 0 , no EPS. Over the course of this hospitalization pt was attending groups, pt also had medication management, had therapeutic milieu. Overall pt improved significantly, psychosis improved, mood improved, no signs of anxiety, pt was socially appropriate, no behavioral issues, pts insight improved as well and soon pt deemed to be ready for discharge. At the time of the discharge pt denied been depressed, denied thoughts of harming self or others, denied psychotic symptoms, and pt does not appeared to be psychotic, denied been anxious, was considered to pose no threat to self or others, will be following up with his primary psychiatrist, information about follow up appointment, time and address provided to the pt, it is patient responsibility to follow up with outpatient clinic, PMD as well as specialists ( see SW note for more detailed information). In case pt will need to obtain results of studies pending at discharge pt was provided with contact information of Psychiatric Inpatient unit [phone] as well as Medical Record Department [phone]. Pt was provided with all of his current medication prescriptions (please see medication reconciliation form). Pt was educated about safety plan in case of worsening of symptoms or in case of suicidal or homicidal ideation call 911 or go to the nearest ER, also was educated to take meds as prescribed and stay away from drugs, pt verbalized understanding. - Diagnosis (1) Severe depressed bipolar I disordr w/psychotc features, mood-congruent Current Visit: Yes Status: Acute - Final Diagnosis (DSM 5) Condition upon Discharge: STABLE Disposition: HOME/ ROUTINE Follow-up Treatment Plan: At the time of the discharge pt denied been depressed, denied thoughts of harming self or others, denied psychotic symptoms, and pt does not appeared to be psychotic, denied been anxious, was considered to pose no threat to self or others, will be following up with his primary psychiatrist, information about follow up appointment, time and address provided to the pt, it is patient responsibility to follow up with outpatient clinic, PMD as well as specialists ( see SW note for more detailed information). In case pt will need to obtain results of studies pending at discharge pt was provided with contact information of Psychiatric Inpatient unit [phone] as well as Medical Record Department [phone]. Pt was provided with all of his current medication prescriptions (please see medication reconciliation form). Pt was educated about safety plan in case of worsening of symptoms or in case of suicidal or homicidal ideation call 911 or go to the nearest ER, also was educated to take meds as prescribed and stay away from drugs, pt verbalized understanding. Prescriptions/Medication Reconciliation: Benztropine [Cogentin] 0.5 mg PO AMHS #30 tab Venlafaxine [Effexor XR] 150 mg PO DAILY #30 cer Folic Acid 1 mg PO DAILY #7 tab clonazePAM [Klonopin] 1 mg PO BID #30 tab Pantoprazole [Protonix EC Tab] 40 mg PO 0630 #7 ect risperiDONE [RisperDAL Tab] 2 mg PO AMHS #30 tab Zaleplon [Sonata] 5 mg PO HS PRN #14 cap PRN Reason: Insomnia Levothyroxine [Synthroid] 50 mcg PO ACB #7 tab Fenofibrate [Tricor] 145 mg PO DAILY #7 tab - Smoking Cessation Smoking Cessation Medication prescribed: No Reason for not providing: pt does not smoke
--- NOTE | 2016-05-26 19:12 | PN ---
DATE: 05/26/2016 The patient is a 45-year-old, seen and examined sitting in chair. He states he feels a lot better. He is eating well. He was tolerating. He is not hallucinating. He feels stable and does not look d epressed. VITAL SIGNS: He is afebrile, pulse 73, respirations 17, blood pressure 139/90. LUNGS: Bilateral good airflow. No rhonchi or crackle. HEART: S1, S2 audible, no murmur. ABDOMEN: Soft, nontender, no rebound, no guarding. NEUROLOGICALLY: He is awake and alert, communicative. ASSESSMENT AND PLAN: 1. Bipolar disorder. 2. History of hallucination. 3. Hypothyroidism. 4. Obesity. 5. Hyperlipidemia. PLAN: The patient is being discharged today. I will give him a prescription of Tricor 145 mg daily, and he is given a prescription of Synthroid 50 mcg daily. He will follow up in office in a week or two. Mykel Cheng MD cc: [phone] TT: 05/26/2016 19:11:56 Confirmation # [id number] Dictation # [id number]
== END 2016-05-26 16:00 | disposition home or self-care (01) | DRG 885 ==
LOC: ED 22:17 → ERH 05-22 03:42 → PSYC 05-22 05:08
PROVIDERS: ADMIT Psychiatry & Neurology Psychiatry; ATTEND Psychiatry & Neurology Psychiatry
PROC: GZ3ZZZZ Medication Management (ICD-10-PCS; principal; 2016-05-22)
DX: F31.5 Bipolar disorder, current episode depressed, severe, with psychotic features (principal); R45.850 Homicidal ideations; K31.84 Gastroparesis; K27.9 Peptic ulcer, site unspecified, unspecified as acute or chronic, without hemorrhage or perforation; F41.0 Panic disorder [episodic paroxysmal anxiety]; K21.9 Gastro-esophageal reflux disease without esophagitis; K58.9 Irritable bowel syndrome, unspecified; E78.5 Hyperlipidemia, unspecified; E03.9 Hypothyroidism, unspecified; E66.9 Obesity, unspecified; K29.70 Gastritis, unspecified, without bleeding; Z68.37 Body mass index [BMI] 37.0-37.9, adult; Z81.8 Family history of other mental and behavioral disorders